=== PATIENT | female | born 1970 | race Caucasian/White ===

== ENCOUNTER 2018-02-24 15:18 | Emergency (ER) | payer MEDICAID ==
[2018-02-24 17:03] LABS: APPEARANCE SLT CLOUDY (CLEAR); COLOR YELLOW (YELLOW)
[2018-02-24 17:04] LABS: BILIRUBIN NEGATIVE (NEGATIVE); GLUCOSE NEGATIVE (NEGATIVE); KETONE NEGATIVE (NEGATIVE); NITRITE NEGATIVE (NEGATIVE); PROTEIN NEGATIVE (NEGATIVE); SPECIFIC GRAVITY 1.015 (1.005-1.020); UROBILINOGEN NORMAL (NORMAL)
== END 2018-02-24 18:08 | disposition home or self-care (01) ==
LOC: D.ER 15:18
PROVIDERS: Physician Assistant Medical
DX: M51.36 Other intervertebral disc degeneration, lumbar region (principal); M54.5 Low back pain; I10 Essential (primary) hypertension

== ENCOUNTER 2018-04-02 23:55 | Emergency (ER) | payer MEDICAID ==
[~2018-04-02] VITALS: Ht 170.2 cm; Wt 129.5 kg
[2018-04-02 23:58] VITALS: Ht 170.2 cm; Wt 129.5 kg
[2018-04-02] MEDS ORDERED: ZESTORETIC 10/11 TAB (23:59)
[2018-04-02] MEDS ORDERED: GABAPENTIN100 MG (23:59)
[2018-04-03] MEDS ORDERED: ULTRAM50 MG PO (01:27)
[2018-04-03 02:11] VITALS: BP 110/71
== END 2018-04-03 02:22 | disposition home or self-care (01) ==
LOC: D.ER 23:55
DX: M54.16 Radiculopathy, lumbar region (principal)

== ENCOUNTER 2018-04-23 20:36 | Emergency (ER) | payer OTHER ==
[~2018-04-23] VITALS: Ht 170.2 cm; Wt 129.3 kg
[~2018-04-23 20:36] MED LIST: GABAPENTIN100 MG; ULTRAM50 MG PO; ZESTORETIC 10/11 TAB
[2018-04-23 20:38] VITALS: BP 131/77; Ht 170.2 cm; Wt 129.3 kg
[2018-04-23] MEDS ORDERED: ROBAXIN500 MG PO (20:49)
[2018-04-23] MEDS ORDERED: ULTRAM50 MG PO (20:49)
== END 2018-04-23 21:13 | disposition home or self-care (01) ==
LOC: D.ER 20:36
DX: M54.5 Low back pain (principal); I10 Essential (primary) hypertension

== ENCOUNTER → 2018-05-05 08:12 | Outpatient (CLI) | payer OTHER ==
[2018-04-23 20:38] VITALS: BMI 44.7
[~2018-05-05 08:12] MED LIST changes: +ROBAXIN-750750 MG PO; +ROBAXIN500 MG PO
== END | disposition home or self-care (01) ==
LOC: D.MRI 08:12
DX: M96.1 Postlaminectomy syndrome, not elsewhere classified (principal)

== ENCOUNTER 2018-06-18 11:43 | Emergency (ER) | payer OTHER ==
[~2018-06-18] VITALS: Ht 170.2 cm; Wt 127.3 kg
[~2018-06-18 11:43] MED LIST changes: -ROBAXIN-750750 MG PO
[2018-06-18 11:57] VITALS: Ht 170.2 cm; Wt 127.3 kg
[2018-06-18] MEDS ORDERED: ROBAXIN-750750 MG PO (12:32)
[2018-06-18] MEDS ORDERED: ULTRAM50 MG PO (12:32)
[2018-06-18 12:48] VITALS: BP 124/78
== END 2018-06-18 12:48 | disposition home or self-care (01) ==
LOC: D.ER 11:43
DX: M54.2 Cervicalgia (principal); M79.1 Myalgia; I10 Essential (primary) hypertension

== ENCOUNTER 2020-12-07 03:45 | Inpatient (IN) | payer OTHER ==
[~2020-12-07] VITALS: Ht 170.2 cm; Wt 117.7 kg
[~2020-12-07 03:45] MED LIST changes: +CHRONULAC30 ML PO; +COMPAZINE25 MG RC; +HYDROCHLOROTHIA25 MG PO; +LEVSIN/ANASP0.125 MG PO; +LISINOPRIL20 MG PO; +PEPCID40 MG PO; +PHENERGAN50 MG RC; +PROZAC10 MG; +ROBAXIN-750750 MG PO; +ZOFRAN ODT4 MG/UDTAB PO
[2020-12-07 04:27] LABS: BASOPHILS 0.2 % (0-2); EOSINOPHILS 0.4 % (0-7); HEMATOCRIT 42.4 % (36.0-48.0); HEMOGLOBIN 14.7 g/dL (12-16); IMMATURE GRANULOCYTES 0.2 % (0-5); LYMPHOCYTE ABS# 1.53 10x3/uL (1.18-3.74); LYMPHOCYTES 15.1 % (15-50); MCH 30.6 pg (26.0-34.0); MCHC 34.7 g/dL (31.0-37.0); MCV 88.3 fL (80.0-100.0); MEAN PLATELET VOLUME 10.2 fL (7.4-10.4); MONOCYTES 4.5 % (2-11); NEUTROPHIL ABS# 8.05 10x3/uL (1.56-6.13); NEUTROPHILS 79.6 % (40-80); PLATELET COUNT 341 10x3/uL (130-400); RDW 12.8 % (11.5-14.5); WBC 10.1 10x3/uL (4.8-10.8)
[2020-12-07 04:49] LABS: CALCIUM 9.1 mg/dL (8.5-10.1); CARBON DIOXIDE 25.8 mmol/L (21.0-32.0); CHLORIDE - SERUM 103 mmol/L (98-107); CREATININE - SERUM 0.9 mg/dL (0.6-1.3); POTASSIUM - SERUM 3.6 mmol/L (3.5-5.1); SODIUM 137 mmol/L (136-145); UREA NITROGEN 12 mg/dL (7-18); eGFR NON AFRICAN AMERICAN 70 mL/min (90-120)
[2020-12-07 04:58] LABS: ALBUMIN 3.5 g/dL (3.4-5.0); ALKALINE PHOSPHATASE 95 U/L (30-120); ALT (SGPT) 58 U/L (10-68); AMYLASE - SERUM 35 U/L (25-115); BILIRUBIN - TOTAL 0.58 mg/dL (0.2-1.3); LIPASE 54 U/L (73-393); PROTEIN - SERUM 7.2 g/dL (6.4-8.2); TROPONIN-I < 0.017 ng/mL (0.000-0.060)
[2020-12-07 04:59] LABS: CALC OSMOLALITY 277 mosm/kg (275-300); GLUCOSE 173 mg/dL (74-106)
[2020-12-07 05:57] VITALS: BP 182/108
[2020-12-07 10:39] VITALS: BP 186/125
[2020-12-07 10:46] VITALS: BP 187/111
--- NOTE | 2020-12-07 12:13 | NUR ---
URINE COLLECTED AND SENT TO LAB.
[2020-12-07 12:30] LABS: BILIRUBIN NEGATIVE (NEGATIVE); KETONE NEGATIVE (NEGATIVE); NITRITE NEGATIVE (NEGATIVE); UROBILINOGEN NORMAL mg/dL (< 2)
[2020-12-07 12:32] LABS: BACTERIA FEW HPF (NONE SEEN); SQUAMOUS EPITHELIAL 0-5 HPF (0-4); WHITE CELLS - URINE 0-5 HPF (0-4)
[2020-12-07 12:43] LABS: UDS - AMPHET NEGATIVE QUAL (NEGATIVE); UDS - BARB NEGATIVE QUAL (NEGATIVE); UDS - BENZO NEGATIVE QUAL (NEGATIVE); UDS - COCAINE NEGATIVE QUAL (NEGATIVE); UDS - OPIATE POSITIVE QUAL (NEGATIVE); UDS - PCP NEGATIVE QUAL (NEGATIVE); UDS - THC NEGATIVE QUAL (NEGATIVE)
[2020-12-07 17:21] VITALS: BP 118/75
--- NOTE | 2020-12-07 17:58 | NUR ---
PT ARRIVED ON FLOOR VIA WHEELCHIAR. ALERT AND ORIENTED, UP WITHOUT ASSITANCE.
[2020-12-07] MEDS ORDERED: HYDROCHLOROTHIA25 MG PO (20:01)
--- NOTE | 2020-12-07 20:10 | NUR ---
AWAKE,ALERT. SITTING ON SIDE OF BED. NO DISTRESS NOTED. 02 @ 3L PER NC ON. RIJ INTACT WITHOUT REDNESS OR EDEMA NOTED. 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
[2020-12-07 21:05] LABS: HCG URINE NEGATIVE (NEGATIVE)
[2020-12-07 21:51] VITALS: BP 123/81
[2020-12-08] VITALS (7 sets, daily range): BP systolic 99–145; BP diastolic 57–110; Ht 170.2 cm; Wt 117.7 kg
[2020-12-08 04:29] LABS: BASOPHILS 0.4 % (0-2); EOSINOPHILS 0.8 % (0-7); HEMATOCRIT 38.1 % (36.0-48.0); HEMOGLOBIN 12.7 g/dL (12-16); IMMATURE GRANULOCYTES 0.1 % (0-5); LYMPHOCYTE ABS# 3.32 10x3/uL (1.18-3.74); LYMPHOCYTES 43.5 % (15-50); MCH 29.8 pg (26.0-34.0); MCHC 33.3 g/dL (31.0-37.0); MCV 89.4 fL (80.0-100.0); MEAN PLATELET VOLUME 9.9 fL (7.4-10.4); NEUTROPHIL ABS# 3.75 10x3/uL (1.56-6.13); NEUTROPHILS 49.2 % (40-80); PLATELET COUNT 288 10x3/uL (130-400); RBC 4.26 10x6/uL (4.00-5.40); RDW 13.1 % (11.5-14.5); WBC 7.6 10x3/uL (4.8-10.8)
[2020-12-08 04:51] LABS: ALBUMIN 2.8 g/dL (3.4-5.0); ANION GAP 5.9 mmol/L (8-16); BILIRUBIN - TOTAL 0.44 mg/dL (0.2-1.3); CALCIUM 8.1 mg/dL (8.5-10.1); CARBON DIOXIDE 31.6 mmol/L (21.0-32.0); CREATININE - SERUM 0.9 mg/dL (0.6-1.3); PHOSPHOROUS 3.5 mg/dL (2.5-4.9); PROTEIN - SERUM 5.8 g/dL (6.4-8.2)
[2020-12-08 05:03] LABS: POTASSIUM - SERUM 2.5 mmol/L (3.5-5.1)
--- NOTE | 2020-12-08 07:22 | NUR ---
RESTING IN BED WITH EYES OPEN, ALERT AND ORIENTED. IV LOCATED TO LEFT HAND CURRENTLY RUNNING NS @ 75, K+ @ 50, AND DILAUDID OFFICE SUPPORT SPECIALIST PRESENT. NO CURRENT S/S OF DISTRESS AT THIS TIME, DENIES CURRENT NEEDS, WILL CONT TO MONITOR.
--- NOTE | 2020-12-08 10:59 | NUR ---
RCVED BACK FROM PROCEDURE VIA HOSPITAL BED AND STAFF. V/S STABLE, AWAKE AND ALERT, NO S/S OF DISTRESS AT THIS TIME, DENIES NEEDS AT THIS TIME, WILL CONT TO MONITOR.
--- NOTE | 2020-12-08 11:07 | NUR ---
PT REFUSED FSBS CHECK, STATES SHE ISNT A DIABETIC.
--- NOTE | 2020-12-08 12:25 | OP ---
PATIENT NAME: OTF DOTSON MEDICAL RECORD: [id number] LOCATION:[facility] ADMISSION DATE:12/07/20 SURGEON: NEVILLE ABBOTT MD DATE OF OPERATION: 12/08/2020 PREOPERATIVE DIAGNOSES: 1. Epigastric abdominal pain. 2. Intractable nausea and vomiting. POSTOPERATIVE DIAGNOSES: 1. Epigastric abdominal pain. 2. Intractable nausea and vomiting with normal-appearing stomach, esophagus, and duodenum. PROCEDURE: Esophagogastroduodenoscopy with mid esophageal biopsies to rule out eosinophilic esophagitis. Distal esophageal biopsies at the Z-line to rule out Mary's esophagus. Antral biopsies to rule out Helicobacter pylori and mid duodenal biopsies. SURGEON: Neville Abbott MD. LOADER SEMICONDUCTOR DIES: None. BLOOD LOSS: Minimal. ANESTHESIA: IV sedation. COMPLICATIONS: None. The risks, possible complications, and alternatives of the procedure were explained to the patient. She elected to proceed. ENDOSCOPIC COURSE: The patient was conveyed to endoscopy suite electively on 12/08/2020. IV sedation was induced by the anesthesia staff. A bite block was inserted. A gastroscope was inserted into the mouth. It was advanced easily into the hypopharynx. The esophagus was easily intubated as were the stomach and duodenum. Upon withdrawal, retroflexed and angulus views were obtained. I then advanced into the duodenum. Mid duodenal biopsies were obtained. I withdrew into the antrum and a cold endoscopic biopsies were obtained of the antrum. I then withdrew into the distal esophagus. Cold endoscopic biopsies were obtained here as well. I then withdrew into the mid esophagus and mid esophageal biopsies were obtained. The endoscope was then withdrawn under direct vision. I noted no evidence of disease that would cause her symptoms. I am going to obtain an MRCP as well as abdominal ultrasound. TRANSINT:[id number] Voice Confirmation ID: [id number] DOCUMENT ID: [id number] OPERATIVE REPORT [id number] OTF DOTSON ROBERT MD at 1225 CC: [id number] DICTATION DATE: 12/08/20 1040 MOONER: 12/08/20 1126 [place] [id number]
--- NOTE | 2020-12-08 12:54 | NUR ---
SYRINGE CHANGED OUT ON DILAUDID [employer] ARCHITECT. DENIES CURRENT NEEDS, WILL CONT TO MONITOR.
--- NOTE | 2020-12-08 17:16 | NUR ---
EKG COMPLETE AND ON THE CHART. WILL CONT TO MONITOR.
--- NOTE | 2020-12-08 20:30 | NUR ---
AWAKE, WATCHING TV WITH NO COMPLAINTS VOICED. RESP UNALBORED. RESEARCH ASSOCIATE POLICY DILAUDID IN USE FOR PAIN CONTROL. CL IN REACH
[2020-12-09 00:47] VITALS: BP 121/80
--- NOTE | 2020-12-09 05:49 | NUR ---
I have reviewed this patient and I concur with the Shift Assessment completed by the Licensed Practical Nurse today this shift.
[2020-12-09 06:19] LABS: BASOPHILS 0.3 % (0-2); EOSINOPHILS 1.2 % (0-7); HEMOGLOBIN 12.1 g/dL (12-16); IMMATURE GRANULOCYTES 0.3 % (0-5); LYMPHOCYTES 42.4 % (15-50); MCH 29.9 pg (26.0-34.0); MCHC 32.7 g/dL (31.0-37.0); MONOCYTES 6.4 % (2-11); NEUTROPHIL ABS# 3.27 10x3/uL (1.56-6.13); NEUTROPHILS 49.4 % (40-80); PLATELET COUNT 275 10x3/uL (130-400); RBC 4.05 10x6/uL (4.00-5.40); RDW 13.3 % (11.5-14.5); WBC 6.6 10x3/uL (4.8-10.8)
[2020-12-09 06:25] LABS: MCV 91.4 fL (80.0-100.0)
[2020-12-09 06:36] VITALS: BP 100/54
[2020-12-09 06:43] LABS: ALBUMIN 2.7 g/dL (3.4-5.0); ALKALINE PHOSPHATASE 74 U/L (30-120); ALT (SGPT) 61 U/L (10-68); BILIRUBIN - TOTAL 0.32 mg/dL (0.2-1.3); CALC OSMOLALITY 281 mosm/kg (275-300); CALCIUM 8.3 mg/dL (8.5-10.1); CARBON DIOXIDE 31.1 mmol/L (21.0-32.0); CHLORIDE - SERUM 108 mmol/L (98-107); CREATININE - SERUM 0.8 mg/dL (0.6-1.3); GLUCOSE 101 mg/dL (74-106); PROTEIN - SERUM 5.5 g/dL (6.4-8.2); SODIUM 142 mmol/L (136-145); UREA NITROGEN 11 mg/dL (7-18); eGFR NON AFRICAN AMERICAN 81 mL/min (90-120)
[2020-12-09 06:54] LABS: POTASSIUM - SERUM 2.9 mmol/L (3.5-5.1)
--- NOTE | 2020-12-09 07:49 | NUR ---
PROVIDED PT A HAIR TIE. SHE WOULD LIKE TO EAT. SHE MIGHT BE ABLE TO AFTER HER MRCP. CL IN REACH. WCTM
[2020-12-09 08:34] VITALS: BP 116/78
[2020-12-09 11:49] VITALS: BP 95/49
[2020-12-09 15:55] VITALS: BP 109/64
[2020-12-09 19:29] VITALS: BP 101/62
[2020-12-10 04:00] VITALS: BP 109/67
[2020-12-10 06:32] LABS: BASOPHILS 0.3 % (0-2); EOSINOPHILS 1.4 % (0-7); HEMATOCRIT 38.8 % (36.0-48.0); HEMOGLOBIN 12.6 g/dL (12-16); IMMATURE GRANULOCYTES 0.3 % (0-5); LYMPHOCYTE ABS# 2.78 10x3/uL (1.18-3.74); LYMPHOCYTES 39.7 % (15-50); MCHC 32.5 g/dL (31.0-37.0); MCV 92.4 fL (80.0-100.0); MEAN PLATELET VOLUME 10.1 fL (7.4-10.4); MONOCYTES 5.3 % (2-11); NEUTROPHIL ABS# 3.72 10x3/uL (1.56-6.13); PLATELET COUNT 232 10x3/uL (130-400); RDW 13.4 % (11.5-14.5)
[2020-12-10 06:38] LABS: ALBUMIN 2.5 g/dL (3.4-5.0); ANION GAP 8.2 mmol/L (8-16); BILIRUBIN - TOTAL 0.22 mg/dL (0.2-1.3); CARBON DIOXIDE 27.9 mmol/L (21.0-32.0); CREATININE - SERUM 0.9 mg/dL (0.6-1.3); MAGNESIUM - SERUM 1.9 mg/dL (1.8-2.4); POTASSIUM - SERUM 3.1 mmol/L (3.5-5.1); PROTEIN - SERUM 5.6 g/dL (6.4-8.2)
--- NOTE | 2020-12-10 07:12 | NUR ---
PT LAYING IN BED. ALERT AND ORIENTED. CL IN REACH. NO NEEDS AT THIS TIME. PM SHIFT STATES PT WAS HAPPY THAT SHE FINALLY GOT HER A COKE LAST NIGHT. WCTM
[2020-12-10 14:14] VITALS: BP 122/80
[2020-12-10] MEDS ORDERED: PROTONIX40 MG PO (15:14)
[2020-12-10] MEDS ORDERED: CARAFATE1 G PO (15:14)
[2020-12-10 18:28] VITALS: BP 122/77
--- NOTE | 2020-12-10 19:28 | NUR ---
iv therapy removed from left hand with tip intact. discharge instructions signed. pt verbalized understanding. refused wheelchair down. got dressed and left with .
== END 2020-12-10 19:30 | disposition home or self-care (01) | DRG 392 ==
LOC: D.ER 03:45 → D.EDHOLD 05:24 → OBSVTIME 05:24 → D.MS 16:45
PROVIDERS: Family Medicine; Surgery; ADMIT Emergency Medicine; ATTEND Emergency Medicine
PROC: 0DB68ZX Excision of Stomach, Via Natural or Artificial Opening Endoscopic, Diagnostic (ICD-10-PCS; 2020-12-08)
PROC: 0DB58ZX Excision of Esophagus, Via Natural or Artificial Opening Endoscopic, Diagnostic (ICD-10-PCS; 2020-12-08)
PROC: 0DB98ZX Excision of Duodenum, Via Natural or Artificial Opening Endoscopic, Diagnostic (ICD-10-PCS; principal; 2020-12-08 10:00)
DX: R10.13 Epigastric pain (principal); R11.2 Nausea with vomiting, unspecified; E87.6 Hypokalemia